=== PATIENT | male | born 1970 | race Caucasian/White ===

== ENCOUNTER → 2016-09-26 | Outpatient (CLI) | payer BC ==
--- NOTE | 2016-09-26 14:11 | KCIC ---
EXAM: Testicular sonogram. HISTORY: Left testicular lump. TECHNIQUE: Grayscale and color Doppler sonographic imaging of the testes was made with analysis was performed. COMPARISON: None. FINDINGS: The right testis measures 4.4 x 1.9 x 3.1 cm. The left testis measures 3.5 x 2.3 x 2.9 cm. There is normal symmetric blood flow within both testes. No focal testicular parenchymal lesion is seen. There are multiple epididymal cysts, the largest of which measures 5 mm on the left. There is a left varicocele. No hydrocele is seen. There is no hernia. IMPRESSION: 1. Multiple epididymal cysts, the largest of which measures 5 mm on the left. 2. Left varicocele. Electronically signed by: Stormy Hansen MD (09/26/2016 2:07 PM)
== END | disposition home or self-care (01) ==
LOC: KCIC US 13:19
PROVIDERS: ATTEND Nurse Practitioner Occupational Health
DX: N44.2 Benign cyst of testis (principal)
CPT/HCPCS: 76870